=== PATIENT | male | born 1970 | race African-American/Black ===

== ENCOUNTER 2023-01-27 07:40 | Emergency (ER) | payer OTHER ==
[2023-01-27 08:03] VITALS: BMI 26.2
[2023-01-27 08:39] LABS: BASO % 0.6 % (0-2.0); EOS % 0.1 % (0-4.5); HEMATOCRIT 41.8 % (35.4-49); HEMOGLOBIN 14.8 GM/dL (11.7-16.9); LYMPH % 16.6 % (8-40); MCH 27.9 pg (25.7-33.7); MCHC 35.4 g/dl (32.0-35.9); MEAN CELL VOLUME 78.6 fl (80-96); MEAN PLT VOLUME 7.1 fl (7.5-11.1); MONO % 6.3 % (3.8-10.2); NEUT % 76.4 % (42.8-82.8); PLATELET COUNT 252 10^3/uL (134-434); RBC 5.32 M/mm3 (4.00-5.60); RDW 16.1 % (11.9-15.9); WHITE BLOOD COUNT 8.8 K/mm3 (4.0-10.0)
[2023-01-27] MEDS ORDERED: ONDANSETRON 4 MG/2 ML VIAL IVPB ONE (08:50)
[2023-01-27] MEDS ORDERED: SODIUM CHLORIDE 0.9% 500 ML INFUS.BAG IV ONE ×2 (08:50→09:39)
[2023-01-27] MEDS ORDERED: ACETAMINOPHEN 1000 MG/100 ML BAG IVPB ONE (08:50)
[2023-01-27] MEDS ORDERED: ONDANSETRON 4 MG/2 ML VIAL ONE (08:56)
[2023-01-27] MEDS ORDERED: ACETAMINOPHEN INJECTION 100 ML IVPB ONE (08:56)
[2023-01-27 08:59] LABS: POTASSIUM 4.3 mmol/L (3.5-5.1)
[2023-01-27 09:01] LABS: ALBUMIN 4.4 g/dl (3.4-5.0); BLOOD UREA NITROGEN 22.1 mg/dL (7-18); CALCIUM 10.1 mg/dL (8.5-10.1)
[2023-01-27 09:04] LABS: CREATININE 1.4 mg/dL (0.55-1.3)
[2023-01-27 09:06] LABS: BILIRUBIN,TOTAL 1.6 mg/dL (0.2-1); TOT PROT 8.8 g/dl (6.4-8.2)
[2023-01-27 09:34] LABS: EPI CELLS 6 /uL (0-25.1); HYALINE CASTS 1 /uL (0-3.1); URINE APPEARANCE CLEAR; URINE BACTERIA 11 /uL (0-1359); URINE BILIRUBIN NEGATIVE (NEGATIVE); URINE COLOR YELLOW; URINE GLUCOSE (UA) NEGATIVE (NEGATIVE); URINE KETONE 2+ (NEGATIVE); URINE LEUK ESTERASE NEGATIVE (NEGATIVE); URINE NITRITE NEGATIVE (NEGATIVE); URINE PROTEIN 1+ (NEGATIVE); URINE RBC 48 /uL (0-23.9); URINE WBC 4 /uL (0-25.8)
[2023-01-27] MEDS ORDERED: KETOROLAC TROMETHAMINE 15 MG/ML VIAL IVPUSH ONE (11:32)
[2023-01-27] MEDS ORDERED: KETOROLAC TROMETHAMINE 15 MG/ML VIAL ONE (11:33)
[2023-01-27] MEDS ORDERED: MAGNESIUM CITRATE 300 ML BOTTLE PO ONE (12:18)
[2023-01-27] MEDS ORDERED: MAGNESIUM CITRATE 300 ML BOTTLE ONE (12:31)
[2023-01-27] MEDS ORDERED: POLYETHYLENE GLYCOL (HEALTHYLAX) 3350 17 GM PACKET PO ONE (12:45)
[2023-01-27 15:39] VITALS: BP 118/84; PULSE 82; RESP 20; TEMP 98.4
== END 2023-01-27 15:40 | disposition home or self-care (01) ==
LOC: JER 07:40
PROC: 3E033NZ Introduction of Analgesics, Hypnotics, Sedatives into Peripheral Vein, Percutaneous Approach (ICD-10-PCS; principal; 2023-01-27)
PROC: 3E033GC Introduction of Other Therapeutic Substance into Peripheral Vein, Percutaneous Approach (ICD-10-PCS; 2023-01-27)
PROC: 3E033GC Introduction of Other Therapeutic Substance into Peripheral Vein, Percutaneous Approach (ICD-10-PCS; 2023-01-27)
DX: R11.2 Nausea with vomiting, unspecified (principal); K59.00 Constipation, unspecified; R10.31 Right lower quadrant pain
CPT/HCPCS: 36415; 74177-TC; 76705-TC; 80053; 81003; 85025; 99285-25; Q9967